=== PATIENT | male | born 1985 | race Caucasian/White ===

== ENCOUNTER 2018-09-22 10:21 | Emergency (ER) | payer OTHER ==
[~2018-09-22] VITALS: Ht 175.3 cm; Wt 72.6 kg
[~2018-09-22 10:21] MED LIST: COUMADIN 1MG TAB1 M1 PO; ENOXAPARIN80 MG/0.8 SUBQ; HYDROCODON-ACE1 EAC7 PO; ONDANSETRON HCL4 M2 PO; PERCOCET 5-3251 EACH PO; VITAMIN B-1100 M1 PO
[2018-09-22 10:56] LABS: ABSOLUTE BASOPHILS 0.1 thou/uL (0.0-0.2); ABSOLUTE EOSINOPHILS 0.4 thou/uL (0.0-0.7); ABSOLUTE LYMPHOCYTES 2.5 thou/uL (0.8-5.3); ABSOLUTE MONOCYTES 0.6 thou/uL (0.0-1.2); BASOPHILS 0.9 %; EOSINOPHILS 4.5 %; HEMATOCRIT 45.3 % (42.0-52.0); HEMOGLOBIN 15.1 gm/dL (14.0-18.0); LYMPHOCYTES 29.4 %; MCH 29.7 pg (26.0-34.0); MCHC 33.4 g/dL (28.0-37.0); MCV 89.1 fL (80.0-100.0); MONOCYTES 6.6 %; MPV 7.8 fl. (7.2-11.1); NUCLEATED RBCS 0 /100WBC; PLATELET COUNT* 258 thou/uL (150-400); POLYS 58.6 %; RBC 5.08 mil/uL (4.50-6.00); RDW-CV 14.3 % (10.5-14.5); WBC 8.4 thou/uL (4.0-11.0)
[2018-09-22 11:08] LABS: ANION GAP 7 mmol/L (7-16); BUN 13 mg/dL (7-18); CALCIUM 8.7 mg/dL (8.5-10.1); CHLORIDE 103 mmol/L (98-107); CO2 29 mmol/L (21-32); GLUCOSE 100 mg/dL (70-99); POTASSIUM 4.4 mmol/L (3.5-5.1); SODIUM 139 mmol/L (136-145)
[2018-09-22 11:12] LABS: APTT 28.5 Seconds (25.0-31.3); PROTIME 10.7 Seconds (9.20-11.50)
[2018-09-22 11:18] LABS: ALBUMIN 3.8 g/dL (3.4-5.0); ALKALINE PHOSPHATASE 72 U/L (46-116); LIPASE 119 U/L (73-393); NT-PRO BRAIN NAT PEPTIDE 27 pg/mL (<300); SGOT 20 U/L (15-37); SGPT 20 U/L (30-65); TOTAL BILIRUBIN 0.7 mg/dL (<0.1-1.0); TROPONIN-I LEVEL <0.06 ng/mL (<0.06)
[2018-09-22] MEDS ORDERED: SKELAXIN 800 M800 M1 PO (11:43)
[2018-09-22] MEDS ORDERED: NABUMETONE 750750 M1 PO (11:43)
[2018-09-22 11:59] LABS: URINE BILIRUBIN NEGATIVE (Negative); URINE BLOOD NEGATIVE (Negative); URINE CLARITY CLEAR; URINE COLOR YELLOW; URINE GLUCOSE-RANDOM NEGATIVE (Negative); URINE KETONES NEGATIVE (Negative); URINE LEUKOCYTES-REFLEX NEGATIVE (Negative); URINE NITRITE-REFLEX NEGATIVE (Negative); URINE PROTEIN NEGATIVE (Negative); URINE UROBILINOGEN 0.2 E.U./dl (0.2-1.0)
[2018-09-22 12:07] LABS: AMP/METHAMP Negative (Negative); BARBITURATES Negative (Negative); BENZODIAZEPINES POSITIVE (Negative); COCAINE Negative (Negative); METHADONE Negative (Negative); OPIATES Negative (Negative); PCP Negative (Negative); THC POSITIVE (Negative)
[2018-09-22 12:29] VITALS: BP 116/63
--- NOTE | 2018-09-22 15:42 | EKG ---
[place] [address] ELECTROCARDIOGRAM REPORT Name: ARABELLA COOPER Room: [facility]#: [id number] Admission: 09/22/18 Attend Phys: Discharge: 09/22/18 Date of : 87 Report #: [id number] THIS REPORT FOR: //name// [facility] ED Test Date: 2018-09-22 Test Time: 10:37:11 Pat Name: ARABELLA COOPER Department: Room: Gender: M Medical Facilities Section Director: : 1985 Requested By: Cary Ibrahim Order Number: [id number] MD: Gianluca Sanchez Measurements Intervals Mazon Rate: 67 P: 38 IN: 150 QRS: -48 QRSD: 81 T: 35 QT: 393 QTc: 415 Interpretive Statements Sinus rhythm consider Inferior infarct, old Anteroseptal infarct, age indeterminate Lateral leads are also involved Compared to ECG 08/31/2012 20:09:36 Sinus bradycardia no longer present Electronically Signed On 09-22-2018 15:42:16 SHOT EXAMINER by Gianluca Sanchez [email or web address] <ELECTRONICALLY SIGNED> By: Gianluca Sanchez MD, [facility] 09/22/18 1542 1037 1037 Gianluca Sanchez MD, [facility] /EPI
== END 2018-09-22 12:30 | disposition home or self-care (01) ==
LOC: M.ERS 10:21
PROVIDERS: Nurse Practitioner Family
DX: R07.89 Other chest pain (principal); R06.00 Dyspnea, unspecified; F17.210 Nicotine dependence, cigarettes, uncomplicated; Z86.711 Personal history of pulmonary embolism; Z79.899 Other long term (current) drug therapy

== ENCOUNTER 2021-05-22 14:54 | Emergency (ER) | payer OTHER ==
[~2021-05-22] VITALS: Ht 177.8 cm; Wt 72.6 kg
[~2021-05-22 14:54] MED LIST changes: +NABUMETONE 750750 M1 PO; +SKELAXIN 800 M800 M1 PO
[2021-05-22] MEDS ORDERED: VIMPAT100 MG PO (15:00)
[2021-05-22 15:21] LABS: ABSOLUTE BASOPHILS 0.1 thou/uL (0.0-0.2); ABSOLUTE LYMPHOCYTES 1.4 thou/uL (0.8-5.3); ABSOLUTE MONOCYTES 0.6 thou/uL (0.0-1.2); ABSOLUTE NEUTROPHILS 15.2 thou/uL (1.6-8.1); BASOPHILS 0.6 %; EOSINOPHILS 0.1 %; HEMATOCRIT 49.5 % (42.0-52.0); HEMOGLOBIN 16.3 gm/dL (14.0-18.0); LYMPHOCYTES 8.2 %; MCH 29.1 pg (26.0-34.0); MCV 88.2 fL (80.0-100.0); MONOCYTES 3.3 %; MPV 7.6 fl. (7.2-11.1); NUCLEATED RBCS 0 /100WBC; PLATELET COUNT* 311 thou/uL (150-400); POLYS 87.8 %; RBC 5.61 mil/uL (4.50-6.00); RDW-CV 14.5 % (10.5-14.5); WBC 17.3 thou/uL (4.0-11.0)
[2021-05-22 15:38] LABS: URINE BILIRUBIN NEGATIVE (Negative); URINE BLOOD 2+ (Negative); URINE CLARITY SL CLOUDY; URINE COLOR YELLOW; URINE GLUCOSE-RANDOM 2+ (Negative); URINE KETONES 2+ (Negative); URINE LEUKOCYTES NEGATIVE (Negative); URINE NITRITE NEGATIVE (Negative); URINE PROTEIN 2+ (Negative); URINE SPECIFIC GRAVITY >= 1.030 (1.005-1.030); URINE UROBILINOGEN 0.2 E.U./dl (0.2-1.0)
[2021-05-22 15:38] LABS: CALCIUM 8.5 mg/dL (8.5-10.1); CREATININE 1.3 mg/dL (0.6-1.3); POTASSIUM 4.4 mmol/L (3.5-5.1)
[2021-05-22 15:42] LABS: ALBUMIN 4.8 g/dL (3.4-5.0); TOTAL BILIRUBIN 0.6 mg/dL (<0.1-1.0); TOTAL PROTEIN 8.2 g/dL (6.4-8.2)
[2021-05-22 15:45] LABS: AMP/METHAMP Negative (Negative); BARBITURATES Negative (Negative); BENZODIAZEPINES Negative (Negative); COCAINE Negative (Negative); METHADONE Negative (Negative); OPIATES Negative (Negative); PCP Negative (Negative); THC POSITIVE (Negative)
[2021-05-22 15:46] LABS: SQUAMOUS 0-3 Few /LPF (0-3)
[2021-05-22 15:49] LABS: AMORPHOUS PHOSPHATES Moderate /LPF (None Seen); BACTERIA 1-9 Few /HPF (None Seen); CASTS None Seen /LPF (None Seen); CRYSTALS None Seen /LPF (None Seen); URINE RBC 3-10 Few /HPF (0-2); URINE WBC 0-5 Rare /HPF (0-5)
--- NOTE | 2021-05-22 16:05 | EKG ---
[place] [address] ELECTROCARDIOGRAM REPORT Name: ARABELLA COOPER Room: [facility]#: [id number] Admission: 05/22/21 Attend Phys: Discharge: Date of : 87 Date of Service: 05/22/21 1521 Report #: [id number] THIS REPORT FOR: //name// [facility] ED Test Date: 2021-05-22 Test Time: 15:21:30 Pat Name: ARABELLA COOPER Department: Room: Gender: Vp Site: [facility] : 1985 Requested By: Fabricio Pineda Order Number: [id number] MD: Gianluca Sanchez Measurements Intervals Nikolai Rate: 67 P: 0 GA: 149 QRS: -55 QRSD: 93 T: 38 QT: 389 QTc: 411 Interpretive Statements Sinus rhythm poor r wave progression Left anterior fascicular block Artifact in lead(s) I,III,aVR,aVL,aVF Compared to ECG 09/22/2018 10:37:11 no change Electronically Signed On 05-22-2021 16:04:55 CDT by Gianluca Sanchez [email or web address] <ELECTRONICALLY SIGNED> By: Gianluca Sanchez MD, [facility] 05/22/21 1604 1521 1521 Gianluca Sanchez MD, [facility] /EPI
[2021-05-22] MEDS ORDERED: VIMPAT200 MG PO (16:51)
[2021-05-22 16:57] VITALS: BP 134/92
== END 2021-05-22 16:58 | disposition home or self-care (01) ==
LOC: M.ERS 14:54
PROVIDERS: Emergency Medicine Emergency Medical Services
DX: R56.9 Unspecified convulsions (principal); R51.9 Headache, unspecified; F17.210 Nicotine dependence, cigarettes, uncomplicated; F10.10 Alcohol abuse, uncomplicated; F12.10 Cannabis abuse, uncomplicated; Z86.711 Personal history of pulmonary embolism